=== PATIENT | female | born 1950 | race Caucasian/White ===

== ENCOUNTER 2024-01-09 12:19 | Day surgery (SDC) | payer MEDICARE ==
[~2024-01-09] VITALS: Ht 157.5 cm; Wt 56.6 kg
[~2024-01-09 12:19] MED LIST: Balanced Salt Epinephrine Irrigation Solution 500 mL IR SCH; Lidocaine HCl/Pf 1% 5 ML VIAL XX SCH; Moxifloxacin HCL 0.5 MG/0.1 ML 0.4MLSYR RIGHTEYE SCH; NS 500 ML IV ONE; PHENYLEPHRINE\\TROPICAMIDE\\TETRACAINE OPHTHALMIC DILATING SOLN RIGHTEYE PRN; Povidone-Iodine 450 DROP/30 ML Solution ONE; Povidone-Iodine 450 DROP/30 ML Solution RIGHTEYE SCH; Triamcinolone Inj Susp 40 MG / ML 1ML Vial INJ SCH; Triamcinolone Inj Susp 40 MG / ML 1ML Vial ONE
[2024-01-09] MEDS ORDERED: NS 500 ML IV ONE (13:14)
[2024-01-09] MEDS ORDERED: Aspir 8181 MG PO (13:15)
[2024-01-09] MEDS ORDERED: Phenylephrine Frt 10% Opth (ORSC) ONE (13:46)
[2024-01-09] MEDS ORDERED: Midazolam HCl 1MG / ML 2ML Vial ONE (14:08)
[2024-01-09] MEDS ORDERED: Tetracaine HCl 0.5% Opth Soln 15 ml RIGHTEYE ONE (14:09)
[2024-01-09 15:01] VITALS: BP 200/85
== END 2024-01-09 14:57 | disposition home or self-care (01) ==
LOC: ORSCSDS 12:19
PROVIDERS: Ophthalmology
PROC: 08RJ3JZ Replacement of Right Lens with Synthetic Substitute, Percutaneous Approach (ICD-10-PCS; principal; 2024-01-09 14:00)
DX: H25.13 Age-related nuclear cataract, bilateral (principal)
CPT/HCPCS: J2250; J3301; J7040; V2632